=== PATIENT | male | born 1945 | race Asian ===

== ENCOUNTER 2021-06-07 11:08 | Observation (INO) | payer OTHER ==
[2021-06-07 11:25] VITALS: BMI 19.7
[2021-06-07 11:50] LABS: BASO % 0.4 % (0-2.0); EOS % 0.5 % (0-4.5); HEMATOCRIT 43.8 % (35.4-49); HEMOGLOBIN 14.7 GM/dL (11.7-16.9); MCH 31.4 pg (25.7-33.7); MCHC 33.5 g/dl (32.0-35.9); MEAN CELL VOLUME 93.7 fl (80-96); MEAN PLT VOLUME 9.4 fl (7.5-11.1); MONO % 8.5 % (3.8-10.2); NEUT % 78.6 % (42.8-82.8); PLATELET COUNT 110 10^3/uL (134-434); RBC 4.67 M/mm3 (4.00-5.60); RDW 15.7 % (11.9-15.9); WHITE BLOOD COUNT 11.6 K/mm3 (4.0-10.0)
[2021-06-07 11:57] LABS: INR 0.94 (0.83-1.09)
[2021-06-07 11:59] LABS: ACTIVATED PTT 53.2 SECONDS (25.2-36.5)
[2021-06-07 12:12] LABS: CHLORIDE 97 mmol/L (98-107); SODIUM 132 mmol/L (136-145)
[2021-06-07 12:13] LABS: ALBUMIN 4.1 g/dl (3.4-5.0); ANION GAP 10 MMOL/L (8-16); BLOOD UREA NITROGEN 16.2 mg/dL (7-18); CO2 26 mmol/L (21-32); GLUCOSE,RANDOM 229 mg/dL (74-106)
[2021-06-07 12:17] LABS: CREATININE 1.2 mg/dL (0.55-1.3); SGOT/AST 47 U/L (15-37); SGPT/ALT 66 U/L (13-61)
[2021-06-07 12:19] LABS: BILIRUBIN,TOTAL 0.5 mg/dL (0.2-1); TOT PROT 8.9 g/dl (6.4-8.2)
[2021-06-07 12:20] LABS: ALK PHOS 126 U/L (45-117)
[2021-06-07] MEDS ORDERED: DIPHTH,PERTUSS(ACELL),TET 0.5 ML DISP.SYRIN IM ONE ×2 (13:27→14:25)
[2021-06-07] MEDS ORDERED: ACETAMINOPHEN 325 MG TABLET (FP) PO PRN (14:46)
[2021-06-07] MEDS: INSULIN SLIDING SCALE (NOVOLOG) 1 VIAL SQ SCH ×2 (19:14→22:17)
[2021-06-07] MEDS ORDERED: INSULIN (LEVEMIR) 100 UNITS/ML UNITS SQ SCH (22:00)
[2021-06-07] MEDS ORDERED: ATORVASTATIN CA 80 MG TABLET (FP) PO SCH (22:00)
[2021-06-07] MEDS ORDERED: ATORVASTATIN CA 80 MG TABLET (FP) ONE (22:11)
[2021-06-07] MEDS ORDERED: INSULIN (LEVEMIR) 100 UNITS/ML UNITS SQ ONE (22:11)
[2021-06-08 07:00] VITALS: TEMP 97.5
[2021-06-08] MEDS: INSULIN SLIDING SCALE (NOVOLOG) 1 VIAL SQ SCH ×2 (08:47→11:36)
[2021-06-08] MEDS ORDERED: amLODIPine BESYLATE 5 MG TABLET (FP) ONE (09:35)
[2021-06-08] MEDS ORDERED: amLODIPine BESYLATE 5 MG TABLET (FP) PO SCH (10:00)
[2021-06-08 11:41] LABS: BASO % 0.4 % (0-2.0); EOS % 0.8 % (0-4.5); HEMATOCRIT 40.9 % (35.4-49); HEMOGLOBIN 13.8 GM/dL (11.7-16.9); LYMPH % 24.7 % (8-40); MCH 31.3 pg (25.7-33.7); MCHC 33.9 g/dl (32.0-35.9); MEAN CELL VOLUME 92.5 fl (80-96); MEAN PLT VOLUME 8.7 fl (7.5-11.1); MONO % 8.2 % (3.8-10.2); NEUT % 65.9 % (42.8-82.8); PLATELET COUNT 130 10^3/uL (134-434); RBC 4.42 M/mm3 (4.00-5.60); RDW 15.2 % (11.9-15.9); WHITE BLOOD COUNT 7.2 K/mm3 (4.0-10.0)
[2021-06-09 03:35] VITALS: BP 122/56; PULSE 85
== END 2021-06-09 03:27 ==
LOC: JER 11:08 → JERBED 13:54
PROVIDERS: ADMIT Internal Medicine; ATTEND Internal Medicine
PROC: 3E0234Z Introduction of Serum, Toxoid and Vaccine into Muscle, Percutaneous Approach (ICD-10-PCS; principal; 2021-06-07)
PROC: 3E013VG Introduction of Insulin into Subcutaneous Tissue, Percutaneous Approach (ICD-10-PCS; 2021-06-07)
PROC: 0HQ0XZZ Repair Scalp Skin, External Approach (ICD-10-PCS; 2021-06-07)
DX: S01.01XA Laceration without foreign body of scalp, initial encounter (principal); R55 Syncope and collapse; W18.39XA Other fall on same level, initial encounter; Y93.89 Activity, other specified; Y92.091 Bathroom in other non-institutional residence as the place of occurrence of the external cause; Y99.8 Other external cause status; E78.5 Hyperlipidemia, unspecified; E11.22 Type 2 diabetes mellitus with diabetic chronic kidney disease; I12.0 Hypertensive chronic kidney disease with stage 5 chronic kidney disease or end stage renal disease; N18.6 End stage renal disease; Z99.2 Dependence on renal dialysis
CPT/HCPCS: 12001-25; 36415; 70450-TC; 71045-TC-FY; 72125-TC; 72170-TC-FY; 80053; 82962; 84484; 85025; 85379; 85610; 85730; 86850; 86900; 86901; 90471; 90715; 93005; 93010; 93880-TC; 96372; 99285-25; C9803; G0378; U0003; U0005

== ENCOUNTER 2022-03-08 17:19 | Observation (INO) | payer OTHER ==
[2022-03-08] MEDS ORDERED: LIDOCAINE 5% TOPICAL PATCH TP ONE (18:49)
[2022-03-08] MEDS ORDERED: ACETAMINOPHEN 1000 MG/100 ML BAG IVPB ONE (18:49)
[2022-03-08] MEDS ORDERED: LIDOCAINE 5% TOPICAL PATCH ONE (18:51)
[2022-03-08] MEDS ORDERED: ACETAMINOPHEN INJECTION 100 ML IVPB ONE (18:51)
[2022-03-08 19:06] LABS: BASO % 0.3 % (0-2.0); EOS % 0.1 % (0-4.5); HEMATOCRIT 39.5 % (35.4-49); HEMOGLOBIN 13.3 GM/dL (11.7-16.9); LYMPH % 5.8 % (8-40); MCH 32.1 pg (25.7-33.7); MCHC 33.7 g/dl (32.0-35.9); MEAN CELL VOLUME 95.4 fl (80-96); MEAN PLT VOLUME 9.5 fl (7.5-11.1); MONO % 4.9 % (3.8-10.2); NEUT % 88.9 % (42.8-82.8); PLATELET COUNT 208 10^3/uL (134-434); RBC 4.14 M/mm3 (4.00-5.60); RDW 14.1 % (11.9-15.9)
[2022-03-08 19:16] LABS: CHLORIDE 105 mmol/L (98-107); SODIUM 138 mmol/L (136-145)
[2022-03-08 19:18] LABS: CALCIUM 9.8 mg/dL (8.5-10.1)
[2022-03-08 19:19] LABS: ALBUMIN 3.7 g/dl (3.4-5.0); BLOOD UREA NITROGEN 33.2 mg/dL (7-18); CO2 26 mmol/L (21-32); GLUCOSE,RANDOM 111 mg/dL (74-106)
[2022-03-08 19:22] LABS: CREATININE 1.6 mg/dL (0.55-1.3); SGOT/AST 79 U/L (15-37); SGPT/ALT 44 U/L (13-61)
[2022-03-08 19:23] LABS: BILIRUBIN,TOTAL 0.2 mg/dL (0.2-1); TOT PROT 7.7 g/dl (6.4-8.2)
[2022-03-08 19:25] LABS: ALK PHOS 86 U/L (45-117)
[2022-03-08 19:28] LABS: ANION GAP 7 MMOL/L (8-16)
[2022-03-08 20:28] LABS: INR 0.94 (0.83-1.09); PROTHROMBIN TIME (PATIENT) 10.8 SEC (9.7-13.0)
[2022-03-08 20:31] LABS: ACTIVATED PTT 19.4 SECONDS (25.2-36.5)
[2022-03-08 20:49] LABS: CALCIUM 8.9 mg/dL (8.5-10.1)
[2022-03-08 20:50] LABS: ALBUMIN 3.5 g/dl (3.4-5.0); BLOOD UREA NITROGEN 31.8 mg/dL (7-18)
[2022-03-08 20:53] LABS: CREATININE 1.4 mg/dL (0.55-1.3)
[2022-03-08 20:55] LABS: BILIRUBIN,TOTAL 0.4 mg/dL (0.2-1); TOT PROT 6.8 g/dl (6.4-8.2)
[2022-03-08] MEDS ORDERED: SODIUM CHLORIDE 0.9% 500 ML INFUS.BAG IV ONE (21:27)
[2022-03-09] MEDS ORDERED: LIDOCAINE PATCH REMOVAL MC SCH (07:00)
[2022-03-09 07:53] LABS: BASO % 0.7 % (0-2.0); EOS % 0.9 % (0-4.5); HEMATOCRIT 35.9 % (35.4-49); HEMOGLOBIN 11.9 GM/dL (11.7-16.9); LYMPH % 28.2 % (8-40); MCH 31.3 pg (25.7-33.7); MCHC 33.1 g/dl (32.0-35.9); MEAN CELL VOLUME 94.6 fl (80-96); MEAN PLT VOLUME 9.4 fl (7.5-11.1); MONO % 8.3 % (3.8-10.2); NEUT % 61.9 % (42.8-82.8); PLATELET COUNT 166 10^3/uL (134-434); WHITE BLOOD COUNT 8.4 K/mm3 (4.0-10.0)
[2022-03-09 07:55] LABS: URINE APPEARANCE CLEAR; URINE BILIRUBIN NEGATIVE (NEGATIVE); URINE COLOR YELLOW; URINE GLUCOSE (UA) NEGATIVE (NEGATIVE); URINE KETONE 1+ (NEGATIVE); URINE LEUK ESTERASE NEGATIVE (NEGATIVE); URINE NITRITE NEGATIVE (NEGATIVE); URINE PROTEIN NEGATIVE (NEGATIVE); URINE UROBILINOGEN 0.2 mg/dL (0.2-1.0)
[2022-03-09 08:04] LABS: CALCIUM 8.7 mg/dL (8.5-10.1)
[2022-03-09 08:05] LABS: BLOOD UREA NITROGEN 24.8 mg/dL (7-18); MAGNESIUM 2.3 mg/dL (1.8-2.4)
[2022-03-09 08:08] LABS: CREATININE 1.1 mg/dL (0.55-1.3)
[2022-03-09] MEDS ORDERED: SENNOSIDES 8.6MG TABLET (FP) PO ONE ×2 (08:53→22:52)
[2022-03-09] MEDS ORDERED: POLYETHYLENE GLYCOL (HEALTHYLAX) 3350 17 GM PACKET ONE (08:53)
[2022-03-09] MEDS ORDERED: amLODIPine BESYLATE 5 MG TABLET (FP) ONE (08:53)
[2022-03-09] MEDS ORDERED: DOCUSATE SODIUM 100 MG CAPSULE (FP) PO ONE ×2 (08:54→22:52)
[2022-03-09] MEDS: amLODIPine BESYLATE 5 MG TABLET (FP) PO SCH (09:07)
[2022-03-09] MEDS: DOCUSATE SODIUM 100 MG CAPSULE (FP) PO SCH ×2 (09:07→22:55)
[2022-03-09] MEDS: SENNOSIDES 8.6MG TABLET (FP) PO SCH ×2 (09:07→22:55)
[2022-03-09] MEDS: POLYETHYLENE GLYCOL (HEALTHYLAX) 3350 17 GM PACKET PO SCH (09:07)
[2022-03-09] MEDS ORDERED: ATORVASTATIN CA 80 MG TABLET (FP) PO SCH (22:00)
[2022-03-09] MEDS ORDERED: ATORVASTATIN CA 80 MG TABLET (FP) ONE (22:52)
[2022-03-10] MEDS ORDERED: SENNOSIDES 8.6MG TABLET (FP) PO ONE (08:57)
[2022-03-10] MEDS ORDERED: amLODIPine BESYLATE 5 MG TABLET (FP) ONE (08:57)
[2022-03-10] MEDS ORDERED: POLYETHYLENE GLYCOL (HEALTHYLAX) 3350 17 GM PACKET ONE (08:57)
[2022-03-10] MEDS ORDERED: DOCUSATE SODIUM 100 MG CAPSULE (FP) PO ONE (08:58)
[2022-03-10] MEDS: POLYETHYLENE GLYCOL (HEALTHYLAX) 3350 17 GM PACKET PO SCH (09:26)
[2022-03-10] MEDS: amLODIPine BESYLATE 5 MG TABLET (FP) PO SCH (09:26)
[2022-03-10] MEDS: SENNOSIDES 8.6MG TABLET (FP) PO SCH ×2 (09:26→22:13)
[2022-03-10] MEDS: DOCUSATE SODIUM 100 MG CAPSULE (FP) PO SCH ×2 (09:26→22:13)
[2022-03-10] MEDS ORDERED: ATORVASTATIN CA 80 MG TABLET (FP) PO SCH (21:48)
[2022-03-11 01:25] VITALS: RESP 18
[2022-03-11 07:45] VITALS: PULSE 75
[2022-03-11] MEDS: amLODIPine BESYLATE 5 MG TABLET (FP) PO SCH (09:58)
[2022-03-11] MEDS: DOCUSATE SODIUM 100 MG CAPSULE (FP) PO SCH (09:58)
[2022-03-11] MEDS: POLYETHYLENE GLYCOL (HEALTHYLAX) 3350 17 GM PACKET PO SCH (09:58)
[2022-03-11] MEDS: SENNOSIDES 8.6MG TABLET (FP) PO SCH (09:58)
[2022-03-11] MEDS ORDERED: ASPIRIN COATED 81 MG TABLET.EC PO SCH (10:00)
[2022-03-11] MEDS ORDERED: metoPROLOL SUCCINATE 25 MG TAB.SR.24H (FP) PO SCH (10:00)
[2022-03-11 12:15] VITALS: BP 105/55; TEMP 98.2
== END 2022-03-11 17:22 ==
LOC: JER 17:19 → JERBED 23:45 → J4S 03-10 21:51
PROVIDERS: ADMIT Internal Medicine; ATTEND Internal Medicine
PROC: 3E033GC Introduction of Other Therapeutic Substance into Peripheral Vein, Percutaneous Approach (ICD-10-PCS; principal; 2022-03-08)
PROC: 3E0337Z Introduction of Electrolytic and Water Balance Substance into Peripheral Vein, Percutaneous Approach (ICD-10-PCS; 2022-03-08)
DX: N17.9 Acute kidney failure, unspecified (principal); E11.22 Type 2 diabetes mellitus with diabetic chronic kidney disease; I13.2 Hypertensive heart and chronic kidney disease with heart failure and with stage 5 chronic kidney disease, or end stage renal disease; I50.30 Unspecified diastolic (congestive) heart failure; N18.6 End stage renal disease; Z99.2 Dependence on renal dialysis; Z79.4 Long term (current) use of insulin; R55 Syncope and collapse; E78.5 Hyperlipidemia, unspecified; I25.10 Atherosclerotic heart disease of native coronary artery without angina pectoris; I65.29 Occlusion and stenosis of unspecified carotid artery; S30.0XXA Contusion of lower back and pelvis, initial encounter; W19.XXXA Unspecified fall, initial encounter; Z91.81 History of falling; Y93.9 Activity, unspecified; Y92.122 Bedroom in nursing home as the place of occurrence of the external cause; Z95.1 Presence of aortocoronary bypass graft; Z88.8 Allergy status to other drugs, medicaments and biological substances; Z79.82 Long term (current) use of aspirin; Z20.822 Contact with and (suspected) exposure to COVID-19
CPT/HCPCS: 36415; 70450-TC; 72125-TC; 72170-TC-FY; 73502-TC-LT-FY; 74177-TC; 80048; 80053; 80061; 81003; 82962; 83735; 84484; 85025; 85610; 85730; 87086; 93005; 93010; 93306-TC; 93880-TC; 96374; 99285-25; C9803-CS; G0378; Q9967; U0003; U0005

== ENCOUNTER 2022-06-17 12:35 | Inpatient (IN) | payer OTHER ==
[2022-06-17 13:56] VITALS: BMI 19.8
[2022-06-17] MEDS ORDERED: VANCOMYCIN 1 GM in D5W (PRE-DOCKED) 1,000 MG/250 ML IVPB ONE (14:02)
[2022-06-17] MEDS ORDERED: PIPERACILLIN/TAZOB 4.5 GM 4.5 GM in DEXTROSE 5%-WATER 100 ML IVPB ONE (14:03)
[2022-06-17] MEDS ORDERED: PIPERACILLIN/TAZOB 4.5 GM 4.5 GM/100 ML BAG IVPB ONE (14:08)
[2022-06-17 14:31] LABS: VENOUS BASE EXCESS -5.6 mmol/L (-2-2); VENOUS O2 SATURATION 31.3 % (70-80); VENOUS PCO2 45.9 mmHg (38-52); VENOUS PH 7.28 (7.310-7.410)
[2022-06-17] MEDS ORDERED: VANCOMYCIN/WATER FOR INJ (PEG) 1,000 MG/200 ML BAG IVPB ONE ×2 (15:02→15:03)
[2022-06-17 15:16] LABS: BASO % 1.2 % (0-2.0); EOS % 0.3 % (0-4.5); HEMATOCRIT 38.1 % (35.4-49); HEMOGLOBIN 12.3 GM/dL (11.7-16.9); LYMPH % 11.6 % (8-40); MCH 30.5 pg (25.7-33.7); MCHC 32.4 g/dl (32.0-35.9); MEAN CELL VOLUME 94.1 fl (80-96); MEAN PLT VOLUME 10.2 fl (7.5-11.1); MONO % 5.4 % (3.8-10.2); NEUT % 81.5 % (42.8-82.8); PLATELET COUNT 183 10^3/uL (134-434); RBC 4.05 M/mm3 (4.00-5.60); RDW 14.3 % (11.9-15.9); WHITE BLOOD COUNT 8.3 K/mm3 (4.0-10.0)
[2022-06-17 15:23] LABS: INR 0.98 (0.83-1.09); PROTHROMBIN TIME (PATIENT) 11.3 SEC (9.7-13.0)
[2022-06-17 15:25] LABS: ACTIVATED PTT 34.9 SECONDS (25.2-36.5)
[2022-06-17 15:45] LABS: CHLORIDE 108 mmol/L (98-107); SODIUM 141 mmol/L (136-145)
[2022-06-17 15:46] LABS: PH,URINE 5.5 (5.0-8.0); URINE APPEARANCE CLEAR; URINE BILIRUBIN NEGATIVE (NEGATIVE); URINE COLOR YELLOW; URINE GLUCOSE (UA) NEGATIVE (NEGATIVE); URINE KETONE 1+ (NEGATIVE); URINE LEUK ESTERASE NEGATIVE (NEGATIVE); URINE NITRITE NEGATIVE (NEGATIVE); URINE PROTEIN NEGATIVE (NEGATIVE); URINE UROBILINOGEN 0.2 mg/dL (0.2-1.0)
[2022-06-17 15:48] LABS: CALCIUM 8.3 mg/dL (8.5-10.1)
[2022-06-17 15:49] LABS: ALBUMIN 3.1 g/dl (3.4-5.0); BLOOD UREA NITROGEN 36.1 mg/dL (7-18); CO2 22 mmol/L (21-32); GLUCOSE,RANDOM 133 mg/dL (74-106)
[2022-06-17 15:51] LABS: SGOT/AST 67 U/L (15-37)
[2022-06-17 15:52] LABS: CHOLESTEROL 139 mg/dL (50-200); CREATININE 1.5 mg/dL (0.55-1.3); SGPT/ALT 32 U/L (13-61)
[2022-06-17 15:53] LABS: BILIRUBIN,TOTAL 0.4 mg/dL (0.2-1); LDL CHOLESTEROL (ONLY SJRH) 70 mg/dL (5-100); TOT PROT 6.8 g/dl (6.4-8.2); TRIGLYCERIDES 106 mg/dL (0-150)
[2022-06-17 15:54] LABS: ALK PHOS 71 U/L (45-117)
[2022-06-17 15:55] LABS: HDL CHOLESTEROL 65 mg/dL (40-60)
[2022-06-17 15:59] LABS: ANION GAP 11 MMOL/L (8-16)
[2022-06-17 17:14] LABS: CALCIUM 7.2 mg/dL (8.5-10.1)
[2022-06-17 17:15] LABS: BLOOD UREA NITROGEN 33.4 mg/dL (7-18)
[2022-06-17 17:18] LABS: CREATININE 1.2 mg/dL (0.55-1.3)
[2022-06-17] MEDS: SODIUM CHLORIDE 1,000 ML IV SCH (17:27)
[2022-06-17] MEDS: TICAGRELOR 90 MG TABLET PO SCH (22:07)
[2022-06-17] MEDS ORDERED: HEPARIN NA (PORCINE) 5,000 UNITS/ML 1ML VIAL ONE (22:08)
[2022-06-17] MEDS ORDERED: PIPERACILLIN/TAZOB 2.25 GM 2.25 GM/50 ML BAG IVPB ONE (22:08)
[2022-06-17] MEDS: PIPERACILLIN/TAZOB 2.25 GM 2.25 GM in DEXTROSE 5%-WATER - 50 ML IVPB SCH (22:10)
[2022-06-17] MEDS: HEPARIN NA (PORCINE) 5,000 UNITS/ML 1ML VIAL SQ SCH (22:10)
[2022-06-17] MEDS: INSULIN SLIDING SCALE (NOVOLOG) 1 VIAL SQ SCH (22:21)
[2022-06-18] MEDS: PIPERACILLIN/TAZOB 2.25 GM 2.25 GM in DEXTROSE 5%-WATER - 50 ML IVPB SCH ×5 (02:15→12:21)
[2022-06-18 08:32] LABS: BLOOD UREA NITROGEN 33.8 mg/dL (7-18)
[2022-06-18 08:35] LABS: CREATININE 1.3 mg/dL (0.55-1.3)
[2022-06-18 08:42] LABS: CALCIUM 8.7 mg/dL (8.5-10.1)
[2022-06-18] MEDS: INSULIN SLIDING SCALE (NOVOLOG) 1 VIAL SQ SCH ×3 (08:58→16:47)
[2022-06-18] MEDS ORDERED: TICAGRELOR 90 MG TABLET PO ONE (09:01)
[2022-06-18] MEDS ORDERED: PIPERACILLIN/TAZOB 2.25 GM 2.25 GM/50 ML BAG IVPB ONE (09:01)
[2022-06-18] MEDS ORDERED: HEPARIN NA (PORCINE) 5,000 UNITS/ML 1ML VIAL ONE (09:02)
[2022-06-18] MEDS: HEPARIN NA (PORCINE) 5,000 UNITS/ML 1ML VIAL SQ SCH (09:08)
[2022-06-18] MEDS: TICAGRELOR 90 MG TABLET PO SCH (09:08)
[2022-06-18 09:11] VITALS: RESP 20
[2022-06-18] MEDS: SODIUM CHLORIDE 1,000 ML IV SCH (16:47)
[2022-06-18] MEDS ORDERED: AMPICILLIN NA/SULBACTAM NA 1.5 GM VIAL ONE (17:38)
[2022-06-18] MEDS: AMPICILLIN NA/SULBACTAM NA 1.5 GM in SODIUM CHLORIDE 100 ML IVPB SCH (17:41)
[2022-06-18] MEDS ORDERED: ACETAMINOPHEN 1000 MG/100 ML BAG IVPB PRN (20:18)
[2022-06-19] MEDS ORDERED: AMPICILLIN NA/SULBACTAM NA 1.5 GM VIAL ONE (11:05)
[2022-06-19] MEDS: AMPICILLIN NA/SULBACTAM NA 1.5 GM in SODIUM CHLORIDE 100 ML IVPB SCH ×2 (11:07→17:54)
[2022-06-19] MEDS: HEPARIN NA (PORCINE) 5,000 UNITS/ML 1ML VIAL SQ SCH ×3 (11:07→21:42)
[2022-06-19] MEDS: TICAGRELOR 90 MG TABLET PO SCH ×2 (12:00→22:44)
[2022-06-19] MEDS: INSULIN SLIDING SCALE (NOVOLOG) 1 VIAL SQ SCH ×3 (13:18→22:43)
[2022-06-19] MEDS: SODIUM CHLORIDE 1,000 ML IV SCH (17:55)
[2022-06-20 01:59] VITALS: BP 150/84; PULSE 109; TEMP 98.2
[2022-06-20] MEDS: AMPICILLIN NA/SULBACTAM NA 1.5 GM in SODIUM CHLORIDE 100 ML IVPB SCH (02:00)
== END 2022-06-20 05:34 | DRG 193 ==
LOC: JER 12:35 → JERBED 16:39 → OBSVTOIN 06-18 14:34 → J4W 06-19 07:56
PROVIDERS: ADMIT Internal Medicine; ATTEND Internal Medicine
DX: J18.9 Pneumonia, unspecified organism (principal); G93.41 Metabolic encephalopathy; I10 Essential (primary) hypertension; E78.5 Hyperlipidemia, unspecified; E11.9 Type 2 diabetes mellitus without complications; R41.82 Altered mental status, unspecified; K59.00 Constipation, unspecified; I95.9 Hypotension, unspecified; R09.02 Hypoxemia; I25.10 Atherosclerotic heart disease of native coronary artery without angina pectoris; E86.0 Dehydration
CPT/HCPCS: 0241U-QW; 36415; 70450-TC; 71045-TC-FY; 73502-TC-LT-FY; 73502-TC-RT-FY; 73700-TC-RT; 74230-TC-FY; 80048; 80053; 80061; 81003; 82550; 82553; 82803; 82962; 83605; 84484; 85025; 85610; 85730; 87040; 87086; 87633; 92611-GN; 93005; 93010; 99285-25; G0378; J1644

== ENCOUNTER 2024-01-21 19:10 | Inpatient (IN) | payer OTHER ==
[2024-01-21 19:57] LABS: HEMATOCRIT 22.2 % (35.4-49); MCH 29.3 pg (25.7-33.7); MCHC 31.6 g/dl (32.0-35.9); MEAN CELL VOLUME 92.8 fl (80-96); MEAN PLT VOLUME 8.9 fl (7.5-11.1); PLATELET COUNT 322 10^3/uL (134-434); RBC 2.39 M/mm3 (4.00-5.60); RDW 14.4 % (11.9-15.9); WHITE BLOOD COUNT 12.2 K/mm3 (4.0-10.0)
[2024-01-21 20:36] LABS: INR 1.29 (0.83-1.09); PROTHROMBIN TIME (PATIENT) 14.5 SEC (9.7-13.0)
[2024-01-21 20:38] LABS: ACTIVATED PTT 59.7 SECONDS (25.2-36.5)
[2024-01-21 20:52] LABS: LACTIC ACID 5.4 mmol/L (0.4-2.0)
[2024-01-21 20:55] LABS: POTASSIUM 4.3 mmol/L (3.5-5.1)
[2024-01-21 20:59] LABS: CALCIUM 8.5 mg/dL (8.5-10.1)
[2024-01-21 21:00] LABS: ALBUMIN 2.4 g/dl (3.4-5.0); ANISOCYTOSIS 0; BLOOD UREA NITROGEN 55.5 mg/dL (7-18); MACROCYTOSIS 0
[2024-01-21 21:03] LABS: CREATININE 1.9 mg/dL (0.55-1.3)
[2024-01-21 21:05] LABS: BILIRUBIN,TOTAL 0.2 mg/dL (0.2-1); TOT PROT 6.1 g/dl (6.4-8.2)
[2024-01-21] MEDS: SODIUM CHLORIDE 1,000 ML IV STA (21:18)
[2024-01-21] MEDS: PANTOPRAZOLE SODIUM 40 MG VIAL IVPUSH ONE (21:18)
[2024-01-21] MEDS ORDERED: PANTOPRAZOLE SODIUM 40 MG VIAL ONE (21:25)
[2024-01-21] MEDS ORDERED: FENTANYL CITRATE/PF 50 MCG/ML VIAL ONE (22:38)
[2024-01-21] MEDS ORDERED: HALOPERIDOL LACTATE 5 MG/ML ONE (22:38)
[2024-01-21] MEDS: HALOPERIDOL LACTATE 5 MG/ML IVPUSH ONE (22:46)
[2024-01-21] MEDS: PHYTONADIONE 10 MG/1 ML AMP IVPB ONE (23:47)
[2024-01-21] MEDS: SODIUM CHLORIDE 1,000 ML IV SCH (23:47)
[2024-01-21] MEDS: INSULIN ASPART SLIDING SCALE (NOVOLOG) 1 VIAL SQ SCH (23:51)
[2024-01-21] MEDS: CEFTRIAXONE 1 GM in DEXTROSE 5%-WATER - 50 ML IVPB SCH (23:51)
[2024-01-22] MEDS ORDERED: PHYTONADIONE 10 MG/1 ML AMP ONE (00:15)
[2024-01-22] MEDS ORDERED: CEFTRIAXONE 1 GM/50 ML BAG ONE (00:16)
[2024-01-22] MEDS ORDERED: INSULIN ASPART SLIDING SCALE (NOVOLOG) 1 VIAL SQ ONE (00:47)
[2024-01-22] MEDS: LACTATED RINGERS SOLUTION 1,000 ML/1,000 ML INFUS.BAG IV SCH (02:18)
[2024-01-22] MEDS: PANTOPRAZOLE SODIUM 80 MG in SODIUM CHLORIDE 100 ML IVPB SCH (02:19)
[2024-01-22 02:36] LABS: EPI CELLS 3 /uL (0-25.1); HYALINE CASTS 5 /uL (0-3.1); URINE APPEARANCE CLOUDY; URINE BACTERIA 4477 /uL (0-1359); URINE BILIRUBIN NEGATIVE (NEGATIVE); URINE COLOR YELLOW; URINE GLUCOSE (UA) NEGATIVE (NEGATIVE); URINE KETONE NEGATIVE (NEGATIVE); URINE LEUK ESTERASE 2+ (NEGATIVE); URINE NITRITE NEGATIVE (NEGATIVE); URINE PROTEIN TRACE (NEGATIVE); URINE RBC 26 /uL (0-23.9); URINE UROBILINOGEN 0.2 mg/dL (0.2-1.0); URINE WBC 417 /uL (0-25.8)
[2024-01-22 03:03] LABS: HEMATOCRIT 22.6 % (35.4-49); HEMOGLOBIN 7.6 GM/dL (11.7-16.9); MCH 30.8 pg (25.7-33.7); MCHC 33.5 g/dl (32.0-35.9); MEAN CELL VOLUME 91.9 fl (80-96); MEAN PLT VOLUME 8.2 fl (7.5-11.1); PLATELET COUNT 217 10^3/uL (134-434); RBC 2.46 M/mm3 (4.00-5.60); RDW 13.8 % (11.9-15.9)
[2024-01-22 03:19] LABS: MAGNESIUM 1.9 mg/dL (1.8-2.4)
[2024-01-22 03:23] LABS: PHOSPHOROUS 2.6 mg/dL (2.5-4.9)
[2024-01-22 03:30] LABS: LACTIC ACID 2.6 mmol/L (0.4-2.0)
[2024-01-22] MEDS: MUPIROCIN 2% TOPICAL OINTMENT FOR DECOLONIZATION NS SCH (05:10)
[2024-01-22] MEDS: LACTATED RINGERS SOLUTION 1000 ML INFUS.BAG IV ONE (05:10)
[2024-01-22 05:19] LABS: ANISOCYTOSIS 3+; MACROCYTOSIS 0; ROULEAU 1+
[2024-01-22 07:08] LABS: INR 1.17 (0.83-1.09); PROTHROMBIN TIME (PATIENT) 13.2 SEC (9.7-13.0)
[2024-01-22 07:11] LABS: ACTIVATED PTT 32.1 SECONDS (25.2-36.5)
[2024-01-22 07:19] LABS: POTASSIUM 4.4 mmol/L (3.5-5.1)
[2024-01-22 07:21] LABS: CALCIUM 7.4 mg/dL (8.5-10.1)
[2024-01-22 07:22] LABS: ALBUMIN 2.2 g/dl (3.4-5.0); BLOOD UREA NITROGEN 57.8 mg/dL (7-18); MAGNESIUM 1.9 mg/dL (1.8-2.4)
[2024-01-22 07:25] LABS: CREATININE 1.4 mg/dL (0.55-1.3); PHOSPHOROUS 2.1 mg/dL (2.5-4.9)
[2024-01-22 07:26] LABS: BILIRUBIN,TOTAL 0.4 mg/dL (0.2-1); TOT PROT 5.3 g/dl (6.4-8.2)
[2024-01-22 08:08] LABS: HEMATOCRIT 27.3 % (35.4-49); HEMOGLOBIN 9.4 GM/dL (11.7-16.9); MCH 30.9 pg (25.7-33.7); MCHC 34.3 g/dl (32.0-35.9); MEAN CELL VOLUME 90.1 fl (80-96); MEAN PLT VOLUME 8.9 fl (7.5-11.1); MONO % 4.4 % (3.8-10.2); NEUT % 89.6 % (42.8-82.8); PLATELET COUNT 205 10^3/uL (134-434); RBC 3.03 M/mm3 (4.00-5.60); RDW 13.3 % (11.9-15.9); WHITE BLOOD COUNT 18.9 K/mm3 (4.0-10.0)
[2024-01-22] MEDS ORDERED: PANTOPRAZOLE SODIUM 40 MG VIAL IVPUSH SCH (10:00)
[2024-01-22] MEDS: METOPROLOL TARTRATE 5 MG/5 ML VIAL IVPUSH SCH (14:20)
[2024-01-22] MEDS ORDERED: AMPICILLIN NA/SULBACTAM NA 1.5 GM in SODIUM CHLORIDE 100 ML IVPB SCH (16:00)
[2024-01-22 17:45] LABS: BASO % 0.2 % (0-2.0); EOS % 0.2 % (0-4.5); HEMATOCRIT 27.2 % (35.4-49); HEMOGLOBIN 9.3 GM/dL (11.7-16.9); LYMPH % 9.7 % (8-40); MCH 31.1 pg (25.7-33.7); MCHC 34.2 g/dl (32.0-35.9); MEAN CELL VOLUME 90.9 fl (80-96); MEAN PLT VOLUME 8.8 fl (7.5-11.1); MONO % 6.2 % (3.8-10.2); NEUT % 83.7 % (42.8-82.8); PLATELET COUNT 214 10^3/uL (134-434); RBC 2.99 M/mm3 (4.00-5.60); RDW 13.6 % (11.9-15.9); WHITE BLOOD COUNT 18.2 K/mm3 (4.0-10.0)
[2024-01-22] MEDS: CHLORHEXIDINE GLUCONATE 4% CLEANSER FOR DECOLONIZATION TP SCH (22:19)
[2024-01-22] MEDS: AMPICILLIN NA/SULBACTAM NA 1.5 GM in SODIUM CHLORIDE 100 ML IVPB SCH (22:20)
[2024-01-23] MEDS ORDERED: ALBUTEROL SO4 0.083% IH SOL 2.5 MG/3 ML VIAL.NEB. NEB ONE (02:46)
[2024-01-23 07:47] LABS: POTASSIUM 3.9 mmol/L (3.5-5.1)
[2024-01-23 07:54] LABS: CALCIUM 7.7 mg/dL (8.5-10.1)
[2024-01-23 07:55] LABS: ALBUMIN 2.2 g/dl (3.4-5.0); BASO % 0.4 % (0-2.0); BLOOD UREA NITROGEN 33.3 mg/dL (7-18); EOS % 0.3 % (0-4.5); HEMATOCRIT 24.8 % (35.4-49); HEMOGLOBIN 8.5 GM/dL (11.7-16.9); MAGNESIUM 1.7 mg/dL (1.8-2.4); MCH 31.1 pg (25.7-33.7); MCHC 34.3 g/dl (32.0-35.9); MEAN CELL VOLUME 90.9 fl (80-96); MEAN PLT VOLUME 8.7 fl (7.5-11.1); MONO % 6.9 % (3.8-10.2); NEUT % 81.4 % (42.8-82.8); PLATELET COUNT 200 10^3/uL (134-434); RBC 2.73 M/mm3 (4.00-5.60); RDW 13.8 % (11.9-15.9)
[2024-01-23 07:58] LABS: CREATININE 1.1 mg/dL (0.55-1.3); PHOSPHOROUS 2.6 mg/dL (2.5-4.9)
[2024-01-23 07:59] LABS: TOT PROT 5.2 g/dl (6.4-8.2)
[2024-01-23 08:00] LABS: BILIRUBIN,TOTAL 0.5 mg/dL (0.2-1)
[2024-01-23] MEDS: PANTOPRAZOLE SODIUM 40 MG VIAL IVPUSH SCH (10:38)
[2024-01-23] MEDS: MAGNESIUM 1GM/D5W - 1 GM/100 ML IVPB IVPB ONE (10:38)
[2024-01-23 16:57] LABS: BASO % 0.5 % (0-2.0); EOS % 0.4 % (0-4.5); HEMATOCRIT 29.1 % (35.4-49); HEMOGLOBIN 9.8 GM/dL (11.7-16.9); LYMPH % 8.9 % (8-40); MCH 30.6 pg (25.7-33.7); MCHC 33.5 g/dl (32.0-35.9); MEAN CELL VOLUME 91.2 fl (80-96); MEAN PLT VOLUME 8.4 fl (7.5-11.1); MONO % 6.4 % (3.8-10.2); NEUT % 83.8 % (42.8-82.8); PLATELET COUNT 225 10^3/uL (134-434); RBC 3.19 M/mm3 (4.00-5.60); RDW 14.6 % (11.9-15.9); WHITE BLOOD COUNT 11.6 K/mm3 (4.0-10.0)
[2024-01-24 07:26] LABS: BASO % 0.4 % (0-2.0); EOS % 1.3 % (0-4.5); HEMATOCRIT 24.6 % (35.4-49); HEMOGLOBIN 8.5 GM/dL (11.7-16.9); MCH 31.5 pg (25.7-33.7); MCHC 34.5 g/dl (32.0-35.9); MEAN CELL VOLUME 91.3 fl (80-96); MEAN PLT VOLUME 8.8 fl (7.5-11.1); MONO % 7.2 % (3.8-10.2); NEUT % 78.1 % (42.8-82.8); PLATELET COUNT 205 10^3/uL (134-434); RDW 14.2 % (11.9-15.9); RETICULOCYTES 2.96 % (0.5-1.5); WHITE BLOOD COUNT 10.2 K/mm3 (4.0-10.0)
[2024-01-24 07:43] LABS: POTASSIUM 4.1 mmol/L (3.5-5.1)
[2024-01-24 07:50] LABS: CALCIUM 7.7 mg/dL (8.5-10.1)
[2024-01-24 07:51] LABS: BLOOD UREA NITROGEN 22.6 mg/dL (7-18); MAGNESIUM 1.9 mg/dL (1.8-2.4)
[2024-01-24 07:53] LABS: CREATININE 1.1 mg/dL (0.55-1.3)
[2024-01-24 07:55] LABS: BILIRUBIN,TOTAL 0.5 mg/dL (0.2-1)
[2024-01-24 11:43] LABS: HEPATITIS B SURFACE AG MATERN NON-REACTIVE (NONREACTIVE)
[2024-01-25 07:26] LABS: BASO % 0.6 % (0-2.0); EOS % 3.1 % (0-4.5); HEMATOCRIT 24.1 % (35.4-49); HEMOGLOBIN 8.1 GM/dL (11.7-16.9); LYMPH % 15.3 % (8-40); MCH 31.1 pg (25.7-33.7); MCHC 33.8 g/dl (32.0-35.9); MEAN PLT VOLUME 8.6 fl (7.5-11.1); MONO % 8.1 % (3.8-10.2); NEUT % 72.9 % (42.8-82.8); PLATELET COUNT 203 10^3/uL (134-434); RBC 2.62 M/mm3 (4.00-5.60); RDW 13.7 % (11.9-15.9); WHITE BLOOD COUNT 11.1 K/mm3 (4.0-10.0)
[2024-01-25 07:37] LABS: INR 1.02 (0.83-1.09); PROTHROMBIN TIME (PATIENT) 11.7 SEC (9.7-13.0)
[2024-01-25 07:50] LABS: POTASSIUM 3.7 mmol/L (3.5-5.1)
[2024-01-25 07:57] LABS: ALBUMIN 1.8 g/dl (3.4-5.0); BLOOD UREA NITROGEN 15.7 mg/dL (7-18)
[2024-01-25 07:59] LABS: BILIRUBIN,TOTAL 0.5 mg/dL (0.2-1); TOT PROT 4.6 g/dl (6.4-8.2)
[2024-01-25 08:00] LABS: CALCIUM 7.1 mg/dL (8.5-10.1); MAGNESIUM 1.7 mg/dL (1.8-2.4); PHOSPHOROUS 1.9 mg/dL (2.5-4.9)
[2024-01-25] MEDS: MAGNESIUM 2GM/50ML STERILE WATER IVPB IVPB ONE (09:05)
[2024-01-25] MEDS ORDERED: DEXTROSE 5%-0.45% SALINE 1,000 ML IV SCH (11:45)
[2024-01-25 16:00] VITALS: BMI 22.0
[2024-01-26] MEDS: PANTOPRAZOLE 40 MG TABLET PO SCH (21:14)
[2024-01-27 09:54] LABS: BASO % 0.6 % (0-2.0); EOS % 2.7 % (0-4.5); HEMATOCRIT 24.6 % (35.4-49); HEMOGLOBIN 8.3 GM/dL (11.7-16.9); LYMPH % 17.5 % (8-40); MCH 30.8 pg (25.7-33.7); MCHC 33.6 g/dl (32.0-35.9); MEAN CELL VOLUME 91.6 fl (80-96); MEAN PLT VOLUME 8.5 fl (7.5-11.1); MONO % 10.1 % (3.8-10.2); NEUT % 69.1 % (42.8-82.8); PLATELET COUNT 228 10^3/uL (134-434); RBC 2.69 M/mm3 (4.00-5.60); RDW 14.7 % (11.9-15.9); WHITE BLOOD COUNT 9.4 K/mm3 (4.0-10.0)
[2024-01-27 10:15] LABS: POTASSIUM 3.6 mmol/L (3.5-5.1)
[2024-01-27 10:28] LABS: CALCIUM 7.5 mg/dL (8.5-10.1)
[2024-01-27 10:29] LABS: BLOOD UREA NITROGEN 9.6 mg/dL (7-18)
[2024-01-27 10:31] LABS: ALBUMIN 1.8 g/dl (3.4-5.0)
[2024-01-27 10:33] LABS: BILIRUBIN,TOTAL 0.3 mg/dL (0.2-1); TOT PROT 4.8 g/dl (6.4-8.2)
[2024-01-27 10:37] LABS: N-TERMINAL BNP 5122.9 pg/ml (5-450)
[2024-01-27 11:22] LABS: HEMATOCRIT 24.5 % (35.4-49); HEMOGLOBIN 8.2 GM/dL (11.7-16.9); MCH 30.9 pg (25.7-33.7); MCHC 33.6 g/dl (32.0-35.9); MEAN CELL VOLUME 91.8 fl (80-96); MEAN PLT VOLUME 8.3 fl (7.5-11.1); PLATELET COUNT 222 10^3/uL (134-434); RBC 2.67 M/mm3 (4.00-5.60); RDW 14.6 % (11.9-15.9); WHITE BLOOD COUNT 8.6 K/mm3 (4.0-10.0)
[2024-01-28] MEDS: METOPROLOL TARTRATE 5 MG/5 ML VIAL IVPUSH SCH (09:19)
[2024-01-28] MEDS: INSULIN ASPART SLIDING SCALE (NOVOLOG) 1 VIAL SQ SCH (12:40)
[2024-01-28] MEDS: BISACODYL 5 MG TABLET.DR (FP) PO ONE (17:23)
[2024-01-28] MEDS: PEG 3350/NA SULF BICARB CL/KCL 4000 ML SOLN.RECON PO ONE (17:38)
[2024-01-28] MEDS ORDERED: CHLORHEXIDINE GLUCONATE 4% CLEANSER FOR DECOLONIZATION TP SCH (22:00)
[2024-01-29 12:22] LABS: BASO % 0.9 % (0-2.0); EOS % 2.7 % (0-4.5); HEMATOCRIT 24.9 % (35.4-49); HEMOGLOBIN 8.4 GM/dL (11.7-16.9); LYMPH % 15.8 % (8-40); MCH 31.4 pg (25.7-33.7); MCHC 33.7 g/dl (32.0-35.9); MEAN CELL VOLUME 92.9 fl (80-96); MEAN PLT VOLUME 8.3 fl (7.5-11.1); MONO % 8.2 % (3.8-10.2); NEUT % 72.4 % (42.8-82.8); PLATELET COUNT 243 10^3/uL (134-434); RBC 2.68 M/mm3 (4.00-5.60); RDW 14.4 % (11.9-15.9); WHITE BLOOD COUNT 7.7 K/mm3 (4.0-10.0)
[2024-01-29 12:27] LABS: INR 1.05 (0.83-1.09); PROTHROMBIN TIME (PATIENT) 11.9 SEC (9.7-13.0)
[2024-01-29 12:36] LABS: POTASSIUM 3.7 mmol/L (3.5-5.1)
[2024-01-29 12:40] LABS: BLOOD UREA NITROGEN 10.1 mg/dL (7-18); CALCIUM 7.5 mg/dL (8.5-10.1)
[2024-01-29 12:41] LABS: ALBUMIN 1.8 g/dl (3.4-5.0)
[2024-01-29 12:44] LABS: CREATININE 1.1 mg/dL (0.55-1.3)
[2024-01-29 12:45] LABS: BILIRUBIN,TOTAL 0.3 mg/dL (0.2-1)
[2024-01-30 09:37] LABS: BASO % 0.9 % (0-2.0); EOS % 5.1 % (0-4.5); HEMATOCRIT 23.7 % (35.4-49); HEMOGLOBIN 8.1 GM/dL (11.7-16.9); LYMPH % 24.7 % (8-40); MCH 31.3 pg (25.7-33.7); MEAN CELL VOLUME 91.9 fl (80-96); MEAN PLT VOLUME 8.4 fl (7.5-11.1); MONO % 10.7 % (3.8-10.2); NEUT % 58.6 % (42.8-82.8); PLATELET COUNT 261 10^3/uL (134-434); RBC 2.58 M/mm3 (4.00-5.60); RDW 14.1 % (11.9-15.9); WHITE BLOOD COUNT 6.6 K/mm3 (4.0-10.0)
[2024-01-30 11:03] LABS: BLOOD UREA NITROGEN 8.9 mg/dL (7-18); CREATININE 1.1 mg/dL (0.55-1.3)
[2024-01-30 11:04] LABS: ALBUMIN 1.7 g/dl (3.4-5.0); BILIRUBIN,TOTAL 0.3 mg/dL (0.2-1); CALCIUM 7.4 mg/dL (8.5-10.1); POTASSIUM 3.7 mmol/L (3.5-5.1)
[2024-01-30 11:20] LABS: TOT PROT 4.8 g/dl (6.4-8.2)
[2024-01-31 02:23] VITALS: RESP 18
[2024-01-31 08:08] LABS: POTASSIUM 3.8 mmol/L (3.5-5.1)
[2024-01-31 08:10] LABS: CALCIUM 7.7 mg/dL (8.5-10.1)
[2024-01-31 08:11] LABS: ALBUMIN 1.8 g/dl (3.4-5.0); BLOOD UREA NITROGEN 7.3 mg/dL (7-18)
[2024-01-31 08:14] LABS: CREATININE 1.1 mg/dL (0.55-1.3)
[2024-01-31 08:16] LABS: BILIRUBIN,TOTAL 0.3 mg/dL (0.2-1); TOT PROT 5.3 g/dl (6.4-8.2)
[2024-01-31 08:20] LABS: BASO % 1.3 % (0-2.0); EOS % 4.2 % (0-4.5); HEMATOCRIT 26.3 % (35.4-49); HEMOGLOBIN 8.8 GM/dL (11.7-16.9); LYMPH % 26.4 % (8-40); MCH 30.6 pg (25.7-33.7); MCHC 33.5 g/dl (32.0-35.9); MEAN CELL VOLUME 91.6 fl (80-96); MEAN PLT VOLUME 9.3 fl (7.5-11.1); MONO % 8.9 % (3.8-10.2); NEUT % 59.2 % (42.8-82.8); RBC 2.87 M/mm3 (4.00-5.60); RDW 14.1 % (11.9-15.9); WHITE BLOOD COUNT 6.9 K/mm3 (4.0-10.0)
[2024-01-31 09:41] LABS: PLATELET COUNT 278 10^3/uL (134-434)
[2024-01-31] MEDS: metoPROLOL SUCCINATE 25 MG TAB.SR.24H (FP) PO SCH (10:54)
[2024-01-31 16:10] VITALS: BP 122/62; PULSE 88; TEMP 98.6
== END 2024-01-31 15:52 | DRG 374 ==
LOC: JER 19:10 → JERBED 20:46 → JICU 01-22 02:05 → J8W 01-26 23:42
PROVIDERS: ADMIT Internal Medicine; ATTEND Internal Medicine
PROC: 30233N1 Transfusion of Nonautologous Red Blood Cells into Peripheral Vein, Percutaneous Approach (ICD-10-PCS; 2024-01-21)
PROC: 0DB68ZX Excision of Stomach, Via Natural or Artificial Opening Endoscopic, Diagnostic (ICD-10-PCS; principal; 2024-01-25 11:15)
DX: C16.9 Malignant neoplasm of stomach, unspecified (principal); J69.0 Pneumonitis due to inhalation of food and vomit; K25.4 Chronic or unspecified gastric ulcer with hemorrhage; E87.20 Acidosis, unspecified; R04.2 Hemoptysis; N17.9 Acute kidney failure, unspecified; I24.89 Other forms of acute ischemic heart disease; D62 Acute posthemorrhagic anemia; I13.0 Hypertensive heart and chronic kidney disease with heart failure and stage 1 through stage 4 chronic kidney disease, or unspecified chronic kidney disease; I50.32 Chronic diastolic (congestive) heart failure; R64 Cachexia; E11.42 Type 2 diabetes mellitus with diabetic polyneuropathy; K59.00 Constipation, unspecified; I34.0 Nonrheumatic mitral (valve) insufficiency; I25.10 Atherosclerotic heart disease of native coronary artery without angina pectoris; E78.5 Hyperlipidemia, unspecified; E11.22 Type 2 diabetes mellitus with diabetic chronic kidney disease; N18.9 Chronic kidney disease, unspecified; R62.7 Adult failure to thrive; Z68.21 Body mass index [BMI] 21.0-21.9, adult; R41.82 Altered mental status, unspecified; Z86.73 Personal history of transient ischemic attack (TIA), and cerebral infarction without residual deficits; Z80.0 Family history of malignant neoplasm of digestive organs
CPT/HCPCS: 0241U-QW; 36415; 36430; 71045-TC-FY; 71260-TC; 74177-TC; 74230-TC-FY; 76775-TC; 80053; 81003; 81401; 82550; 82553; 82607; 82728; 82962; 83036; 83540; 83550; 83605; 83735; 83880; 84100; 84443; 84484; 85025; 85027; 85045; 85610; 85730; 86705; 86780; 86803; 86850; 86900; 86901; 86922; 87040; 87086; 87340; 88305-TC; 88341-TC; 92611-GN; 93005; 93010; 93306-TC; 97116-GP; 97161-GP; 99285-25; P9038; P9058; Q9967

== ENCOUNTER 2024-02-14 14:09 | Inpatient (IN) | payer OTHER ==
[2024-02-14 14:38] VITALS: BMI 22.6
[2024-02-14] MEDS ORDERED: ACETAMINOPHEN INJECTION 100 ML IVPB ONE (15:02)
[2024-02-14] MEDS: SODIUM CHLORIDE 0.9% 500 ML INFUS.BAG IV ONE ×2 (15:31→19:22)
[2024-02-14] MEDS: ACETAMINOPHEN 1000 MG/100 ML BAG IVPB ONE (15:31)
[2024-02-14 15:34] LABS: BASO % 0.9 % (0-2.0); EOS % 0.6 % (0-4.5); HEMATOCRIT 28.3 % (35.4-49); HEMOGLOBIN 9.1 GM/dL (11.7-16.9); LYMPH % 11.7 % (8-40); MCH 30.2 pg (25.7-33.7); MCHC 32.1 g/dl (32.0-35.9); MEAN CELL VOLUME 94.1 fl (80-96); MEAN PLT VOLUME 7.9 fl (7.5-11.1); MONO % 5.4 % (3.8-10.2); NEUT % 81.4 % (42.8-82.8); PLATELET COUNT 329 10^3/uL (134-434); RBC 3.01 M/mm3 (4.00-5.60); RDW 15.3 % (11.9-15.9); WHITE BLOOD COUNT 12.7 K/mm3 (4.0-10.0)
[2024-02-14 15:45] LABS: POTASSIUM 5.4 mmol/L (3.5-5.1)
[2024-02-14 15:48] LABS: ALBUMIN 2.7 g/dl (3.4-5.0); BLOOD UREA NITROGEN 37.1 mg/dL (7-18); CALCIUM 8.9 mg/dL (8.5-10.1)
[2024-02-14 15:50] LABS: ACTIVATED PTT 36.4 SECONDS (25.2-36.5); INR 1.13 (0.83-1.09); PROTHROMBIN TIME (PATIENT) 12.7 SEC (9.7-13.0)
[2024-02-14 15:52] LABS: CREATININE 1.7 mg/dL (0.55-1.3)
[2024-02-14 15:53] LABS: BILIRUBIN,TOTAL 0.4 mg/dL (0.2-1); TOT PROT 6.9 g/dl (6.4-8.2)
[2024-02-14 16:11] LABS: EPI CELLS 7 /uL (0-25.1); HYALINE CASTS 3 /uL (0-3.1); PH,URINE 5.5 (5.0-8.0); URINE APPEARANCE TURBID; URINE BILIRUBIN NEGATIVE (NEGATIVE); URINE COLOR YELLOW; URINE GLUCOSE (UA) NEGATIVE (NEGATIVE); URINE KETONE TRACE (NEGATIVE); URINE LEUK ESTERASE 3+ (NEGATIVE); URINE NITRITE POSITIVE (NEGATIVE); URINE PROTEIN 1+ (NEGATIVE); URINE RBC 184 /uL (0-23.9); URINE UROBILINOGEN 0.2 mg/dL (0.2-1.0); URINE WBC 7488 /uL (0-25.8)
[2024-02-14] MEDS ORDERED: CEFTRIAXONE 1 GM/50 ML BAG ONE (16:51)
[2024-02-14] MEDS: CEFTRIAXONE 1 GM in DEXTROSE 5%-WATER - 100 ML IVPB ONE (17:24)
[2024-02-14 20:17] LABS: POTASSIUM 5.6 mmol/L (3.5-5.1)
[2024-02-14 20:18] LABS: CALCIUM 8.2 mg/dL (8.5-10.1)
[2024-02-14] MEDS: INSULIN ASPART SLIDING SCALE (NOVOLOG) 1 VIAL SQ SCH (20:20)
[2024-02-14 20:22] LABS: CREATININE 1.4 mg/dL (0.55-1.3)
[2024-02-14 20:42] LABS: MAGNESIUM 2.3 mg/dL (1.8-2.4)
[2024-02-14 20:46] LABS: PHOSPHOROUS 3.3 mg/dL (2.5-4.9)
[2024-02-14] MEDS ORDERED: PANTOPRAZOLE SODIUM 40 MG VIAL ONE (21:57)
[2024-02-14] MEDS: PANTOPRAZOLE SODIUM 40 MG VIAL IVPUSH ONE (22:08)
[2024-02-14] MEDS: PANTOPRAZOLE SODIUM 80 MG in SODIUM CHLORIDE 100 ML IVPB SCH (22:08)
[2024-02-14] MEDS: PANTOPRAZOLE SODIUM 160 MG in SODIUM CHLORIDE 290 ML IVPB SCH (22:48)
[2024-02-14 23:11] LABS: BASO % 0.6 % (0-2.0); EOS % 0.1 % (0-4.5); HEMATOCRIT 21.4 % (35.4-49); LYMPH % 19.1 % (8-40); MCH 30.6 pg (25.7-33.7); MCHC 32.8 g/dl (32.0-35.9); MEAN CELL VOLUME 93.3 fl (80-96); MEAN PLT VOLUME 7.8 fl (7.5-11.1); MONO % 7.4 % (3.8-10.2); NEUT % 72.8 % (42.8-82.8); PLATELET COUNT 249 10^3/uL (134-434); RDW 15.4 % (11.9-15.9)
[2024-02-15] MEDS: SODIUM CHLORIDE 1,000 ML IV STA (04:41)
[2024-02-15] MEDS ORDERED: PATIENT'S OWN MEDICATION (NON-FORMULARY) (Dorzolamide/Timolol/Pf [Cosopt Pf Eye Drops] 1 E OU SCH (06:00)
[2024-02-15 06:30] LABS: POTASSIUM 4.5 mmol/L (3.5-5.1)
[2024-02-15 06:33] LABS: CALCIUM 7.7 mg/dL (8.5-10.1)
[2024-02-15 06:34] LABS: ALBUMIN 2.4 g/dl (3.4-5.0); BLOOD UREA NITROGEN 36.4 mg/dL (7-18); MAGNESIUM 1.9 mg/dL (1.8-2.4)
[2024-02-15 06:37] LABS: BILIRUBIN,TOTAL 0.8 mg/dL (0.2-1); CREATININE 1.2 mg/dL (0.55-1.3); PHOSPHOROUS 2.1 mg/dL (2.5-4.9)
[2024-02-15 06:39] LABS: TOT PROT 5.7 g/dl (6.4-8.2)
[2024-02-15 07:39] LABS: BASO % 0.5 % (0-2.0); EOS % 0.6 % (0-4.5); HEMOGLOBIN 9.2 GM/dL (11.7-16.9); LYMPH % 18.2 % (8-40); MCH 30.3 pg (25.7-33.7); MCHC 33.9 g/dl (32.0-35.9); MEAN CELL VOLUME 89.4 fl (80-96); MEAN PLT VOLUME 7.9 fl (7.5-11.1); MONO % 7.5 % (3.8-10.2); NEUT % 73.2 % (42.8-82.8); PLATELET COUNT 221 10^3/uL (134-434); RBC 3.03 M/mm3 (4.00-5.60); RDW 17.2 % (11.9-15.9); WHITE BLOOD COUNT 10.2 K/mm3 (4.0-10.0)
[2024-02-15] MEDS ORDERED: PATIENT'S OWN MEDICATION (NON-FORMULARY) (Linagliptin [Tradjenta] 5 MG Tablet) PO SCH (10:00)
[2024-02-15] MEDS: DORZOLAMIDE 2% HCL OPHTHALMIC SOLUTION 10 ML BOTTLE OU SCH (12:15)
[2024-02-15] MEDS: TIMOLOL 0.5% OPHTHALMIC SOL 5 ML BOTTLE OU SCH (12:15)
[2024-02-15] MEDS: DOCUSATE SODIUM 100 MG CAPSULE (FP) PO SCH (12:15)
[2024-02-15] MEDS: prednisoLONE ACETATE 1% OPHTH SUSP 5 ML BOTTLE OS SCH (12:15)
[2024-02-15] MEDS: CEFTRIAXONE 1 GM in DEXTROSE 5%-WATER - 50 ML IVPB SCH (16:19)
[2024-02-15] MEDS: ATORVASTATIN CA 80 MG TABLET (FP) PO SCH (21:57)
[2024-02-15] MEDS ORDERED: PATIENT'S OWN MEDICATION (NON-FORMULARY) (Insulin Glargine,Hum.Rec.Anlog 100 UNITS/ML Ins) SQ SCH (22:00)
[2024-02-15] MEDS: PANTOPRAZOLE 40 MG TABLET PO SCH (22:00)
[2024-02-16 09:55] LABS: HEMATOCRIT 28.5 % (35.4-49); MEAN CELL VOLUME 88.4 fl (80-96); MEAN PLT VOLUME 7.8 fl (7.5-11.1); PLATELET COUNT 185 10^3/uL (134-434); RBC 3.22 M/mm3 (4.00-5.60); RDW 17.4 % (11.9-15.9); WHITE BLOOD COUNT 9.1 K/mm3 (4.0-10.0)
[2024-02-16 10:13] LABS: POTASSIUM 4.1 mmol/L (3.5-5.1)
[2024-02-16 10:15] LABS: BLOOD UREA NITROGEN 34.6 mg/dL (7-18); CALCIUM 7.8 mg/dL (8.5-10.1)
[2024-02-16 10:19] LABS: CREATININE 1.2 mg/dL (0.55-1.3); PHOSPHOROUS 1.7 mg/dL (2.5-4.9)
[2024-02-16] MEDS: NAPH,MB-DB/K PH,MBDB POWDER PACKET PO SCH (14:13)
[2024-02-17 09:32] LABS: BASO % 0.9 % (0-2.0); EOS % 1.6 % (0-4.5); HEMATOCRIT 27.4 % (35.4-49); HEMOGLOBIN 9.4 GM/dL (11.7-16.9); LYMPH % 18.2 % (8-40); MCH 30.5 pg (25.7-33.7); MCHC 34.3 g/dl (32.0-35.9); MEAN CELL VOLUME 89.1 fl (80-96); MEAN PLT VOLUME 7.9 fl (7.5-11.1); MONO % 9.8 % (3.8-10.2); NEUT % 69.5 % (42.8-82.8); PLATELET COUNT 168 10^3/uL (134-434); RBC 3.08 M/mm3 (4.00-5.60); RDW 16.8 % (11.9-15.9); WHITE BLOOD COUNT 9.3 K/mm3 (4.0-10.0)
[2024-02-17 09:40] LABS: POTASSIUM 4.3 mmol/L (3.5-5.1)
[2024-02-17 09:43] LABS: BLOOD UREA NITROGEN 25.2 mg/dL (7-18); CALCIUM 8.1 mg/dL (8.5-10.1)
[2024-02-17 09:45] LABS: ALBUMIN 2.2 g/dl (3.4-5.0); MAGNESIUM 1.9 mg/dL (1.8-2.4)
[2024-02-17 09:47] LABS: CREATININE 1.3 mg/dL (0.55-1.3); PHOSPHOROUS 2.7 mg/dL (2.5-4.9)
[2024-02-17 09:49] LABS: BILIRUBIN,TOTAL 1.1 mg/dL (0.2-1); TOT PROT 5.5 g/dl (6.4-8.2)
[2024-02-17] MEDS: ASPIRIN 81 MG CHEWABLE TABLETS PO SCH (10:34)
[2024-02-18] MEDS: ACETAMINOPHEN 325 MG TABLET (FP) PO PRN (10:08)
[2024-02-18 10:09] LABS: BASO % 0.3 % (0-2.0); EOS % 0.5 % (0-4.5); HEMATOCRIT 26.9 % (35.4-49); HEMOGLOBIN 9.1 GM/dL (11.7-16.9); LYMPH % 12.9 % (8-40); MCH 30.3 pg (25.7-33.7); MCHC 33.9 g/dl (32.0-35.9); MEAN CELL VOLUME 89.3 fl (80-96); MEAN PLT VOLUME 8.4 fl (7.5-11.1); MONO % 6.7 % (3.8-10.2); NEUT % 79.6 % (42.8-82.8); PLATELET COUNT 154 10^3/uL (134-434); RBC 3.02 M/mm3 (4.00-5.60); WHITE BLOOD COUNT 10.5 K/mm3 (4.0-10.0)
[2024-02-18 10:20] LABS: INR 1.03 (0.83-1.09); PROTHROMBIN TIME (PATIENT) 11.6 SEC (9.7-13.0)
[2024-02-18 10:23] LABS: POTASSIUM 3.5 mmol/L (3.5-5.1)
[2024-02-18 10:28] LABS: CALCIUM 7.9 mg/dL (8.5-10.1)
[2024-02-18 10:29] LABS: ALBUMIN 2.2 g/dl (3.4-5.0); BLOOD UREA NITROGEN 18.2 mg/dL (7-18)
[2024-02-18 10:30] LABS: CREATININE 1.2 mg/dL (0.55-1.3)
[2024-02-18 10:32] LABS: TOT PROT 5.4 g/dl (6.4-8.2)
[2024-02-18 10:34] LABS: BILIRUBIN,TOTAL 0.4 mg/dL (0.2-1)
[2024-02-19 10:12] LABS: BASO % 0.9 % (0-2.0); EOS % 2.1 % (0-4.5); HEMATOCRIT 28.2 % (35.4-49); HEMOGLOBIN 9.4 GM/dL (11.7-16.9); LYMPH % 26.4 % (8-40); MCH 29.9 pg (25.7-33.7); MCHC 33.3 g/dl (32.0-35.9); MEAN PLT VOLUME 8.7 fl (7.5-11.1); MONO % 8.1 % (3.8-10.2); NEUT % 62.5 % (42.8-82.8); PLATELET COUNT 170 10^3/uL (134-434); RBC 3.14 M/mm3 (4.00-5.60); RDW 16.8 % (11.9-15.9); WHITE BLOOD COUNT 5.9 K/mm3 (4.0-10.0)
[2024-02-19 10:19] LABS: POTASSIUM 4.7 mmol/L (3.5-5.1)
[2024-02-19 10:26] LABS: ALBUMIN 2.3 g/dl (3.4-5.0); CALCIUM 8.2 mg/dL (8.5-10.1); MAGNESIUM 2.2 mg/dL (1.8-2.4)
[2024-02-19 10:29] LABS: CREATININE 1.2 mg/dL (0.55-1.3)
[2024-02-19 10:30] LABS: PHOSPHOROUS 2.5 mg/dL (2.5-4.9)
[2024-02-19 10:31] LABS: BILIRUBIN,TOTAL 0.4 mg/dL (0.2-1); TOT PROT 5.8 g/dl (6.4-8.2)
[2024-02-19 16:09] VITALS: PULSE 74; RESP 18
[2024-02-19 17:08] VITALS: BP 131/50; TEMP 97.6
== END 2024-02-19 18:50 | DRG 375 ==
LOC: JER 14:09 → JERBED 19:59 → J5S 02-15 11:34
PROVIDERS: ADMIT Internal Medicine; ATTEND Internal Medicine
PROC: 30233N1 Transfusion of Nonautologous Red Blood Cells into Peripheral Vein, Percutaneous Approach (ICD-10-PCS; principal; 2024-02-15)
DX: C16.9 Malignant neoplasm of stomach, unspecified (principal); I13.0 Hypertensive heart and chronic kidney disease with heart failure and stage 1 through stage 4 chronic kidney disease, or unspecified chronic kidney disease; I50.32 Chronic diastolic (congestive) heart failure; K92.2 Gastrointestinal hemorrhage, unspecified; N39.0 Urinary tract infection, site not specified; I25.10 Atherosclerotic heart disease of native coronary artery without angina pectoris; E78.5 Hyperlipidemia, unspecified; E11.22 Type 2 diabetes mellitus with diabetic chronic kidney disease; N18.9 Chronic kidney disease, unspecified; B96.1 Klebsiella pneumoniae [K. pneumoniae] as the cause of diseases classified elsewhere; D64.9 Anemia, unspecified; K59.00 Constipation, unspecified; H40.9 Unspecified glaucoma; R41.82 Altered mental status, unspecified; R74.8 Abnormal levels of other serum enzymes; I95.9 Hypotension, unspecified; R79.89 Other specified abnormal findings of blood chemistry; R62.7 Adult failure to thrive; Z68.22 Body mass index [BMI] 22.0-22.9, adult; Z80.0 Family history of malignant neoplasm of digestive organs; Z95.1 Presence of aortocoronary bypass graft
CPT/HCPCS: 0241U-QW; 36415; 36430; 70450-TC; 71045-TC-FY; 72125-TC; 80048; 80053; 81003; 82272; 82962; 83735; 84100; 84132; 84484; 85025; 85027; 85610; 85730; 86850; 86900; 86901; 86922; 87086; 87186; 87635; 93005; 93010; 97116-GP; 97162-GP; 99285-25; J0131; P9058

== ENCOUNTER 2024-02-24 05:01 | Emergency (ER) | payer OTHER ==
[2024-02-24 05:17] VITALS: BMI 27.3
[2024-02-24] MEDS ORDERED: DIPHTH,PERTUSS(ACELL),TET 0.5 ML DISP.SYRIN IM ONE (05:35)
[2024-02-24] MEDS: DIPHTH,PERTUSS(ACELL),TET 0.5 ML DISP.SYRIN IM ONE (05:44)
[2024-02-24] MEDS ORDERED: LIDOCAINE 1%/EPI 1:100000 (20 ML MULTI DOSE VIAL) ONE (06:20)
[2024-02-24 09:42] VITALS: BP 141/70; PULSE 73; RESP 17; TEMP 98.1
== END 2024-02-24 09:45 | disposition home or self-care (01) ==
LOC: JER 05:01
PROC: 0HQ0XZZ Repair Scalp Skin, External Approach (ICD-10-PCS; principal; 2024-02-24)
PROC: 3E0234Z Introduction of Serum, Toxoid and Vaccine into Muscle, Percutaneous Approach (ICD-10-PCS; 2024-02-24)
DX: S01.01XA Laceration without foreign body of scalp, initial encounter (principal); W06.XXXA Fall from bed, initial encounter; Z23 Encounter for immunization
CPT/HCPCS: 12001-25; 70450-TC; 72125-TC; 90471; 90715; 99284-25

== ENCOUNTER 2024-03-14 16:03 | Observation (INO) | payer OTHER ==
[2024-03-14] MEDS ORDERED: DEXTROSE 50%-WATER 25 GM/50 ML DISP.SYRIN ONE (17:19)
[2024-03-14] MEDS: DEXTROSE 50%-WATER 25 GM/50 ML DISP.SYRIN IVPUSH ONE (17:25)
[2024-03-14 17:28] LABS: BASO % 0.5 % (0-2.0); EOS % 0.7 % (0-4.5); HEMATOCRIT 30.9 % (35.4-49); HEMOGLOBIN 10.1 GM/dL (11.7-16.9); MCH 29.8 pg (25.7-33.7); MCHC 32.6 g/dl (32.0-35.9); MEAN CELL VOLUME 91.5 fl (80-96); MEAN PLT VOLUME 7.7 fl (7.5-11.1); MONO % 7.7 % (3.8-10.2); NEUT % 75.1 % (42.8-82.8); PLATELET COUNT 271 10^3/uL (134-434); RBC 3.38 M/mm3 (4.00-5.60); RDW 16.8 % (11.9-15.9); WHITE BLOOD COUNT 11.8 K/mm3 (4.0-10.0)
[2024-03-14 17:37] LABS: INR 0.87 (0.83-1.09)
[2024-03-14 17:40] LABS: ACTIVATED PTT 35.6 SECONDS (25.2-36.5)
[2024-03-14 17:48] LABS: POTASSIUM 4.3 mmol/L (3.5-5.1)
[2024-03-14 17:50] LABS: CALCIUM 8.7 mg/dL (8.5-10.1)
[2024-03-14 17:51] LABS: BLOOD UREA NITROGEN 21.2 mg/dL (7-18)
[2024-03-14 17:54] LABS: CREATININE 1.5 mg/dL (0.55-1.3)
[2024-03-14 17:55] LABS: BILIRUBIN,TOTAL 0.3 mg/dL (0.2-1)
[2024-03-14 17:56] LABS: TOT PROT 7.3 g/dl (6.4-8.2)
[2024-03-14] MEDS: SODIUM CHLORIDE 0.9% 500 ML INFUS.BAG IV ONE (19:22)
[2024-03-14] MEDS: DIPHTH,PERTUSS(ACELL),TET 0.5 ML DISP.SYRIN IM ONE (19:24)
[2024-03-14 20:46] LABS: EPI CELLS 1 /uL (0-25.1); HYALINE CASTS 0 /uL (0-3.1); URINE APPEARANCE CLOUDY; URINE BACTERIA >9,000 /uL (0-1359); URINE BILIRUBIN NEGATIVE (NEGATIVE); URINE COLOR YELLOW; URINE GLUCOSE (UA) NEGATIVE (NEGATIVE); URINE KETONE NEGATIVE (NEGATIVE); URINE LEUK ESTERASE 3+ (NEGATIVE); URINE NITRITE POSITIVE (NEGATIVE); URINE PROTEIN 1+ (NEGATIVE); URINE RBC 28 /uL (0-23.9); URINE UROBILINOGEN 0.2 mg/dL (0.2-1.0); URINE WBC 1735 /uL (0-25.8)
[2024-03-14] MEDS ORDERED: CEFTRIAXONE 1 GM/50 ML BAG ONE (23:20)
[2024-03-14] MEDS: DEXTROSE 5%-WATER - 1,000 ML IV SCH (23:26)
[2024-03-14] MEDS: INSULIN ASPART SLIDING SCALE (NOVOLOG) 1 VIAL SQ SCH (23:45)
[2024-03-14] MEDS ORDERED: INSULIN ASPART SLIDING SCALE (NOVOLOG) 1 VIAL SQ SCH (23:55)
[2024-03-15] MEDS: CEFTRIAXONE 1,000 MG in DEXTROSE 5%-WATER - 50 ML IVPB SCH (01:23)
[2024-03-15] MEDS: PATIENT'S OWN MEDICATION (NON-FORMULARY) (Dorzolamide/Timolol/Pf [Cosopt Pf Eye Drops] 1 E OU SCH (03:54)
[2024-03-15 06:29] LABS: BASO % 0.7 % (0-2.0); EOS % 1.6 % (0-4.5); HEMATOCRIT 29.4 % (35.4-49); HEMOGLOBIN 9.7 GM/dL (11.7-16.9); MCH 30.4 pg (25.7-33.7); MCHC 32.8 g/dl (32.0-35.9); MEAN CELL VOLUME 92.6 fl (80-96); MEAN PLT VOLUME 7.5 fl (7.5-11.1); MONO % 9.1 % (3.8-10.2); NEUT % 59.6 % (42.8-82.8); PLATELET COUNT 224 10^3/uL (134-434); RBC 3.18 M/mm3 (4.00-5.60); RDW 16.7 % (11.9-15.9); WHITE BLOOD COUNT 7.8 K/mm3 (4.0-10.0)
[2024-03-15 06:47] LABS: POTASSIUM 4.2 mmol/L (3.5-5.1)
[2024-03-15 06:49] LABS: ALBUMIN 2.7 g/dl (3.4-5.0); BLOOD UREA NITROGEN 17.5 mg/dL (7-18); CALCIUM 8.5 mg/dL (8.5-10.1)
[2024-03-15 06:52] LABS: PHOSPHOROUS 3.2 mg/dL (2.5-4.9)
[2024-03-15 06:53] LABS: CREATININE 1.2 mg/dL (0.55-1.3)
[2024-03-15 06:54] LABS: BILIRUBIN,TOTAL 0.3 mg/dL (0.2-1); TOT PROT 6.4 g/dl (6.4-8.2)
[2024-03-15] MEDS: ASPIRIN COATED 81 MG TABLET.EC PO SCH (11:00)
[2024-03-15] MEDS: amLODIPine BESYLATE 5 MG TABLET (FP) PO SCH (11:00)
[2024-03-15] MEDS: DOCUSATE SODIUM 100 MG CAPSULE (FP) PO SCH (11:00)
[2024-03-15] MEDS: PANTOPRAZOLE 40 MG TABLET PO SCH (11:00)
[2024-03-15] MEDS ORDERED: amLODIPine BESYLATE 5 MG TABLET (FP) ONE (11:37)
[2024-03-15] MEDS ORDERED: DOCUSATE SODIUM 100 MG CAPSULE (FP) PO ONE (11:37)
[2024-03-15] MEDS: prednisoLONE ACETATE 1% OPHTH SUSP 5 ML BOTTLE OU SCH (11:49)
[2024-03-15] MEDS: DORZOLAMIDE 2% HCL OPHTHALMIC SOLUTION 10 ML BOTTLE OU SCH (11:50)
[2024-03-15] MEDS: TIMOLOL 0.5% OPHTHALMIC SOL 5 ML BOTTLE OU SCH (11:50)
[2024-03-15 16:56] VITALS: BMI 17.2
[2024-03-15] MEDS: INSULIN (LEVEMIR) 100 UNITS/ML UNITS SQ SCH (18:29)
[2024-03-15] MEDS: ATORVASTATIN CA 80 MG TABLET (FP) PO SCH (21:37)
[2024-03-15] MEDS: CEFTRIAXONE 1 GM in DEXTROSE 5%-WATER - 50 ML IVPB SCH (23:00)
[2024-03-15] MEDS ORDERED: CEFTRIAXONE 1 GM in DEXTROSE 5%-WATER - 50 ML IVPB SCH (23:03)
[2024-03-16 10:05] LABS: BASO % 0.7 % (0-2.0); EOS % 1.8 % (0-4.5); HEMATOCRIT 31.2 % (35.4-49); LYMPH % 27.3 % (8-40); MCH 29.5 pg (25.7-33.7); MCHC 32.2 g/dl (32.0-35.9); MEAN CELL VOLUME 91.9 fl (80-96); MEAN PLT VOLUME 7.7 fl (7.5-11.1); MONO % 9.1 % (3.8-10.2); NEUT % 61.1 % (42.8-82.8); PLATELET COUNT 229 10^3/uL (134-434); RDW 16.5 % (11.9-15.9); WHITE BLOOD COUNT 7.5 K/mm3 (4.0-10.0)
[2024-03-16 10:27] LABS: POTASSIUM 3.9 mmol/L (3.5-5.1)
[2024-03-16 10:31] LABS: CALCIUM 8.7 mg/dL (8.5-10.1)
[2024-03-16 10:32] LABS: BLOOD UREA NITROGEN 15.1 mg/dL (7-18)
[2024-03-16 10:35] LABS: CREATININE 1.3 mg/dL (0.55-1.3)
[2024-03-16] MEDS: INSULIN ASPART SLIDING SCALE (NOVOLOG) 1 VIAL SQ SCH (10:40)
[2024-03-16] MEDS ORDERED: INSULIN ASPART SLIDING SCALE (NOVOLOG) 1 VIAL SQ ONE (19:42)
[2024-03-16] MEDS ORDERED: INSULIN (LEVEMIR) 100 UNITS/ML UNITS SQ ONE (19:42)
[2024-03-17 03:19] VITALS: BP 136/70; PULSE 96; RESP 20; TEMP 98.4
== END 2024-03-17 05:13 ==
LOC: JER 16:03 → JERBED 03-15 00:21 → J8W 03-15 15:11
PROVIDERS: ADMIT Internal Medicine; ATTEND Internal Medicine
PROC: 3E03329 Introduction of Other Anti-infective into Peripheral Vein, Percutaneous Approach (ICD-10-PCS; principal; 2024-03-15)
PROC: 3E033GC Introduction of Other Therapeutic Substance into Peripheral Vein, Percutaneous Approach (ICD-10-PCS; 2024-03-15)
PROC: 3E0337Z Introduction of Electrolytic and Water Balance Substance into Peripheral Vein, Percutaneous Approach (ICD-10-PCS; 2024-03-15)
DX: N39.0 Urinary tract infection, site not specified (principal); E11.649 Type 2 diabetes mellitus with hypoglycemia without coma; R53.81 Other malaise; R62.7 Adult failure to thrive; S01.112A Laceration without foreign body of left eyelid and periocular area, initial encounter; I11.0 Hypertensive heart disease with heart failure; Z85.09 Personal history of malignant neoplasm of other digestive organs; Z87.891 Personal history of nicotine dependence; Z95.1 Presence of aortocoronary bypass graft; Z95.820 Peripheral vascular angioplasty status with implants and grafts; Z88.8 Allergy status to other drugs, medicaments and biological substances
CPT/HCPCS: 36415; 70450-TC; 71045-TC-FY; 72125-TC; 72170-TC-FY; 80048; 80053; 81003; 82962; 83735; 84100; 84484; 85025; 85610; 85730; 87086; 87186; 93005; 93010; 96361; 96365; 96366; 96375; 97116-GP; 97161-GP; 99285-25; G0378